=== PATIENT | male | born 1985 | race Caucasian/White ===

== ENCOUNTER 2016-06-29 09:24 | Emergency (ER) | payer OTHER ==
[~2016-06-29] VITALS: Ht 165.1 cm; Wt 61.4 kg
[~2016-06-29 09:24] MED LIST: ALBUTEROL SULF8.5 GM IH; DURICEF500 MG PO; FLEXERIL10 MG PO; IBUPROFEN800 MG PO; NOHOMEMEDS; OXAYDO5 MG PO; PERCOCET 5/31 TABLET PO; PHENERGAN DM SYR1 ML PO; PREDNISONE20 MG PO; TAMIFLU75 MG PO; TRAMADOL HCL50 MG PO; ZOFRAN4 MG PO
[2016-06-29] MEDS ORDERED: MOBIC7.5 MG PO (11:24)
[2016-06-29 11:46] VITALS: BP 128/85
== END 2016-06-29 11:47 | disposition home or self-care (01) ==
LOC: EME 09:24 → EXP 09:24
DX: M25.531 Pain in right wrist (principal); Z98.890 Other specified postprocedural states; R20.2 Paresthesia of skin; G89.29 Other chronic pain; Z79.891 Long term (current) use of opiate analgesic; F17.200 Nicotine dependence, unspecified, uncomplicated
CPT/HCPCS: 73110; 99281; 99283

== ENCOUNTER 2016-09-19 16:13 | Emergency (ER) | payer OTHER ==
[~2016-09-19] VITALS: Ht 165.1 cm; Wt 64.1 kg
[~2016-09-19 16:13] MED LIST changes: +MOBIC7.5 MG PO
[2016-09-19 16:25] VITALS: BP 99/66
[2016-09-19 17:09] LABS: HEMATOCRIT 48.1 % (38.0-50.0); MCH 31.7 PG (29.0-34.0); MCHC 34.1 G/DL (30.0-36.0); MCV 92.9 FL (86-99); RBC DIS.WIDTH-CV 13.6 % (11.8-14.6); RBC DIS.WIDTH-SD 46.6 % (39-53); RED BLOOD COUNT 5.18 M/uL (4.00-5.50); WHITE BLOOD COUNT 8.6 K/uL (4.1-10.2)
[2016-09-19 17:22] LABS: CHLORIDE 105 mEq/L (99-109); POTASSIUM 4.5 mEq/L (3.7-5.4); SODIUM 139 mEq/L (136-147)
[2016-09-19 17:23] LABS: GLUCOSE 94 mg/dL (70-99)
[2016-09-19 17:25] LABS: ANION GAP 10 MEQ/L (2-14)
[2016-09-19 17:27] LABS: GFR ESTIMATE (CALCULATED) > 59 mL/min/
[2016-09-19 17:28] LABS: UREA NITROGEN (BUN) 17 mg/dL (9-23)
[2016-09-19 17:31] LABS: TROP-I INTERPRETATION NEGATIVE; TROPONIN-I < 0.01 ng/mL (0.0-0.30)
[2016-09-19 18:12] LABS: HEMATOLOGY COMMENT 1 SN; MEAN PLAT.VOLUME 10.1 uM^3 (9.0-12.4); PLAT.SUFFICIENCY ADEQUATE; PLATELET COUNT 309 K/uL (156-360)
== END 2016-09-19 17:57 | disposition left against medical advice (07) ==
LOC: EME 16:13
DX: R07.9 Chest pain, unspecified (principal); Z53.21 Procedure and treatment not carried out due to patient leaving prior to being seen by health care provider; M25.519 Pain in unspecified shoulder; R05 Cough; F17.200 Nicotine dependence, unspecified, uncomplicated
CPT/HCPCS: 71020; 80048; 84484; 85027; 93005

== ENCOUNTER 2017-01-19 06:00 | Emergency (ER) | payer OTHER ==
[~2017-01-19] VITALS: Ht 165.1 cm; Wt 60.5 kg
[2017-01-19 06:04] VITALS: BP 130/87
[2017-01-19] MEDS ORDERED: PERCOCET 5/31 TABLET PO (06:47)
[2017-01-19] MEDS ORDERED: CLEOCIN300 MG PO (06:47)
== END 2017-01-19 07:14 | disposition home or self-care (01) ==
LOC: EME 06:00 → EXP 06:00
DX: T81.4XXA Infection following a procedure, initial encounter (principal); M25.531 Pain in right wrist; F17.200 Nicotine dependence, unspecified, uncomplicated
CPT/HCPCS: 73110; 99281; 99283